=== PATIENT | female | born 1975 | race Caucasian/White ===

== ENCOUNTER 2022-11-18 09:15 | Outpatient (CLI) | payer OTHER ==
[~2022-11-18 09:15] MED LIST: PERCOCET 5/3251 TAB PO; PRISTIC
== END 2022-11-18 09:23 | disposition home or self-care (01) ==
LOC: SONOGRAMA 09:15
PROVIDERS: ATTEND Psychiatry & Neurology Psychiatry
DX: R10.84 Generalized abdominal pain (principal)